=== PATIENT | female | born 1990 | race Caucasian/White ===

== ENCOUNTER 2019-05-11 07:30 | Inpatient (IN) | payer MEDICAID ==
[2019-05-11] VITALS (47 sets, daily range): BP systolic 92–138; BP diastolic 50–80
[~2019-05-11] VITALS: Ht 172.7 cm; Wt 93.2 kg
--- NOTE | 2019-05-11 07:00 | NUR ---
GISSEL DOOLEY admitted to room 3320-1, with an admitting diagnosis of induction of labor, on 05/11/19 from home via ambulation, accompanied by s/o.GISSEL DOOLEY introduced to surroundings, call light, bed controls, phone, TV, temperature control, lights, meal times, smoking policy, visitor policy, side rail policy, bathrooms and showers. Patient Rights given to patient in the handbook. GISSEL DOOLEY verbalizes understanding that [facility] is not responsible for the loss or damage to any personal effects or valuables that are kept in the patients posession during their hospitalization. The following Patient Care Plans were discussed with the patient: Discharge Planning, pain management, labor POC, and epidural protocol. GISSEL DOOLEY verbalizes understanding of Interdisciplinary Patient Education. Patient and/or family were informed about the Rapid Response Team and its purpose.
[~2019-05-11 07:30] MED LIST: D5 LR IV SOLUTION 1,000 ML IV ONE; LACTATED RINGERS 1,000 ML IV ONE
[2019-05-11 08:19] LABS: BASOPHILS % (AUTO) 0 % (0-10); EOSINOPHILS # (AUTO) 0.4 10^3/uL (0.0-0.3); EOSINOPHILS % (AUTO) 3 % (0-10); HEMATOCRIT 37 % (35-52); HEMOGLOBIN 12.4 G/DL (11.5-16.0); LYMPHOCYTES # (AUTO) 2.5 X 10^3 (1.0-4.0); LYMPHOCYTES % (AUTO) 15 % (12-44); MEAN CORPUSCULAR HEMOGLOBIN 32 PG (25-34); MEAN CORPUSCULAR HGB CONC 34 G/DL (32-36); MEAN CORPUSCULAR VOLUME 93 FL (80-99); MEAN PLATELET VOLUME 12.7 FL (7.4-10.4); MONOCYTES # (AUTO) 1.2 X 10^3 (0.0-1.0); MONOCYTES % (AUTO) 7 % (0-12); NEUTROPHILS # (AUTO) 12.2 X 10^3 (1.8-7.8); NEUTROPHILS % (AUTO) 75 % (42-75); PLATELET COUNT 181 10^3/uL (130-400); RED CELL DISTRIBUTION WIDTH 13.3 % (10.0-14.5); WHITE BLOOD COUNT 16.3 10^3/uL (4.3-11.0)
[2019-05-11 08:47] LABS: BAND NEUTROPHILS 0 %; BASOPHILS % (MANUAL) 0 %; EOSINOPHILS % (MANUAL) 6 %; LYMPHOCYTES % (MANUAL) 18 %; MONOCYTES % (MANUAL) 10 %; NEUTROPHILS % (MANUAL) 66 %; RBC MORPH NORMAL
[2019-05-11] MEDS: OXYTOCIN/NORMAL SALINE 500 ML IV SCH ×2 (09:15→17:55)
[2019-05-11] MEDS ORDERED: D5 LR IV SOLUTION 1,000 ML IV SCH (11:44)
[2019-05-11] MEDS ORDERED: OXYTOCIN/NORMAL SALINE 500 ML IV SCH ×2 (11:44→19:35)
[2019-05-11] MEDS ORDERED: DOCU-143 PO (11:49)
[2019-05-11] MEDS ORDERED: OXYC1TAB87 PO (11:49)
[2019-05-11] MEDS ORDERED: IBUP-1780 PO (11:49)
--- NOTE | 2019-05-11 11:50 | Discharge Instructions ---
Discharge Instructions Discharge Medications New, Converted or Re-Newed RX: RX on Chart Patient Instructions Patient Instructions: Per routine Return to The Hospital For: Per routine Activity & Diet Discharge Diet: No Restrictions Activity as Tolerated: No Orders-Post D/C & Referrals Follow Up Appt: Call to make follow up appt. for patient in 4 weeks. Activity Per routine post vaginal delivery instructions. Please call in RX to patient pharmacy. Diet as tolerated Patient may shower or tub bathe as desired. GISSELL YATES MD May 11, 2019 11:50
[2019-05-11] MEDS ORDERED: SUFENTA 0.6MCG/ML BUPIVA 0.125 100 ML ONE (11:56)
[2019-05-11] MEDS ORDERED: LACTATED RINGERS 1,000 ML IV SCH (12:42)
[2019-05-11] MEDS ORDERED: EPIDURAL (SUFENTA 0.6MCG/ML BUPIVA 0.125%) 100 ML BAG EPI SCH (12:45)
[2019-05-11] MEDS ORDERED: diphenhydrAMINE 50 MG/ML INJ (BENADRYL) IV PRN (12:45)
[2019-05-11] MEDS ORDERED: ONDANSETRON 4 MG/2 ML (SDV) Z0FRAN IV PRN (12:45)
[2019-05-11] MEDS ORDERED: METOCLOPRAMIDE INJ 10 MG/2 ML (REGLAN) IV PRN (12:45)
[2019-05-11] MEDS ORDERED: NALOXONE 0.4 MG/ML 1 ML (NARCAN) VIAL IV PRN ×2 (12:45)
--- NOTE | 2019-05-11 15:02 | NUR ---
dr tomas here. assessing contraction/fhr pattern. no new orders at this time.
[2019-05-11] MEDS ORDERED: BUPIVACAINE 0.5% 30 ML (SENSORCAINE) VIAL ONE (16:15)
[2019-05-11] MEDS ORDERED: fentaNYL INJECTION 100 MCG/2 ML AMP ONE (16:16)
--- NOTE | 2019-05-11 16:17 | NUR ---
anesthesia notified of increasing pain without relief from MECHANICS SUPERVISOR bolus.
--- NOTE | 2019-05-11 16:20 | NUR ---
anesthesia to room for poor pain control. lidia denny LIGHT BULB ASSEMBLER found epidural infusing on floor. informed this RN of error. anesthesia gave bolus through epidural, see record.
--- NOTE | 2019-05-11 17:11 | NUR ---
dr tomas notified of patient fhr tracing and variables with contractions. no new orders at this time.
--- NOTE | 2019-05-11 17:18 | NUR ---
sve by this RN. 7-8 cm 100% bloody show, denies pain or pressure. repositioned to right side. variable continues after contraction is finished. . 1719 increased IV fluids to 500cc/hr 1720 O2 on via nonrebreather @ 10 L, repostioned to left tilt with pillow under right buttocks. denies further need. continuing to monitor expectantly.
--- NOTE | 2019-05-11 18:15 | NUR ---
TO BEDSIDE. INFANT IN ARMS S/O AT BEDSIDE. FUNDAL MASSAGE. LIGHT TO MODERATE FLOW SMALL CLOT EXPRESSED WITH MASSAGE. /. DENIES NEED AT THIS TIME. REVIEWED DIET ORDER WITH PATIENT.
--- NOTE | 2019-05-11 18:30 | NUR ---
CONTINUING TO REST QUIETLY FFU/0 LIGHT TO MODERATE FLOW.
--- NOTE | 2019-05-11 18:50 | NUR ---
resting quietly in bed. infant in arms. denies need. moderate flow noted light flow with massage. no clots. ffu/0
--- NOTE | 2019-05-11 19:35 | NUR ---
report to thierry ramirez.
--- NOTE | 2019-05-11 19:35 | NUR ---
patient having difficulty ordering dinner. orders readjusted per dr wong. denies further need. a/ox3 and s/o at bedside.
--- NOTE | 2019-05-11 19:35 | NUR ---
Pt. sitting in bed eating dinner. Will attempt to get up to bathroom once meal is finished.
[2019-05-11] MEDS ORDERED: oxyCODONE/APAP 5/325MG (PERCOCET 5) TABLET PO PRN (19:45)
[2019-05-11] MEDS ORDERED: MEASLES,MUMPS,RUBELLA 1 EA INJ SC ONE (19:45)
[2019-05-11] MEDS ORDERED: BENZOCAINE/MENTHOL (DERMOPLAST) 56 ML CAN TP PRN (19:45)
[2019-05-11] MEDS ORDERED: TETANUS,DIPTH,PERTUSS P/F (BOOSTRIX) 0.5 ML VIAL IM ONE (19:45)
[2019-05-11] MEDS ORDERED: ONDANSETRON 4 MG/2 ML (SDV) Z0FRAN IVP PRN (19:45)
[2019-05-11] MEDS: KETOROLAC 30 MG/ML VIAL IVP PRN (20:13)
--- NOTE | 2019-05-11 20:50 | NUR ---
Pt. was able to ambulate to bathroom without difficulty. Positive void noted. Will transfer to PP room 309 soon.
--- NOTE | 2019-05-11 20:55 | NUR ---
Pt. transferred to PP room 309 via wheelchair, accompanied by staff, , and SO. Pt. oriented to room, call light, room service, and thermostat. toiletries, ice water, and packet provided and explained. No questions or concerns voiced at this time.
[2019-05-11] MEDS: DOCUSATE SODIUM 100 MG (COLACE) CAP PO SCH (21:47)
--- NOTE | 2019-05-12 00:56 | OPERATIVE REPORT ---
DATE OF SERVICE: 05/11/2019 DELIVERY NOTE The patient delivered by term spontaneous vaginal delivery a viable female infant with Apgars of 8 and 9 at 1 and 5 minutes respectively, weight of 6 pounds 15 ounces. time of 1751. The infant was delivered over an intact perineum under epidural analgesia. The infant was bulb suctioned on delivery of the head and again on completion of the delivery. Infant had a spontaneous cry, was quickly pink, moved all extremities and had excellent tone and reflexes. The umbilical cord was doubly clamped, father cut the cord, the baby was passed to mom's abdomen. Cord bloods were obtained. The placenta delivered spontaneously [place]. It was normal with a 3-vessel cord. The placenta was sent to pathology for permanent section due to the patient's history of polyhydramnios. The cervix, vagina, rectum, and perineum were examined and found intact. Estimated blood loss was around 150 mL. Sponge and needle counts were correct on completion of delivery and the post-delivery exam. The patient remained in the LDR for recovery. The baby remained with the mom. Job ID: [id number] DocumentID: [id number] Dictated Date: 05/11/2019 18:02:03 Bridge Painter Date: 05/12/2019 00:55:15 Dictated By: GISSELL YATES MD
[2019-05-12 01:15] VITALS: BP 98/55
[2019-05-12] MEDS: KETOROLAC 30 MG/ML VIAL IVP PRN (01:31)
[2019-05-12 05:14] VITALS: BP 90/59
--- NOTE | 2019-05-12 07:46 | Progress Note ---
Standard Progress Note Progress Notes/Assess & Plan Date Seen by a Provider: May 12, 2019 Time Seen by a Provider: 07:45 Progress/Assessment & Plan This patient is without complaint. She is ambulating, voiding, tolerating oral intake well has good pain control. Patient is requesting discharge home. Vital Signs 05/12/19 05:14 Temp 97.3 Pulse 67 Resp 16 B/P (MAP) 90/59 (69) Pulse Ox 97 O2 Delivery Room Air Vital signs are stable. Patient is afebrile. Fundus is firm below the umbilicus and nontender. Trice show no clubbing or cyanosis. There is no Homans sign. There is some pretibial pitting edema that is within normal limits. Assessment and plan day number 1 doing well. Plan is for discharge home with follow-up to clinic GISSELL YATES MD May 12, 2019 07:46
[2019-05-12 08:00] VITALS: BP 109/78
--- NOTE | 2019-05-12 08:00 | NUR ---
A.M. ASSESSMENT COMPLETED. VSS. WANTING TO GO HOME LATER TODAY.
[2019-05-12] MEDS ORDERED: TETANUS,DIPTH,PERTUSS P/F (BOOSTRIX) 0.5 ML VIAL IM ONE (08:53)
[2019-05-12] MEDS: DOCUSATE SODIUM 100 MG (COLACE) CAP PO SCH (09:09)
[2019-05-12] MEDS: IBUPROFEN 800 MG (MOTRIN) TAB PO SCH ×2 (09:10→15:03)
--- NOTE | 2019-05-12 10:00 | NUR ---
CONTINUES TO DO WELL. ATE STORK MEAL.
--- NOTE | 2019-05-12 10:04 | Anesthesia-Regional Post-Op ---
Regional Patient Condition Mental Status: Alert, Oriented x3 Circulation: Same as Pre-Op Headache: Absent Sensation: Full Recovery Motor Block: Absent Post Op Complications Complications None Follow Up Care/Instructions Patient Instructions None needed. Anesthesia/Patient Condition Patient is doing well, no complaints, stable vital signs, no apparent adverse anesthesia problems. No complications reported per nursing. D/C home per [facility] Criteria: Yes VERA ALEXANDER CRNA May 12, 2019 10:04
[2019-05-12 12:00] VITALS: BP 114/68
--- NOTE | 2019-05-12 12:00 | NUR ---
DR. MACK WAS IN AND NOT BEING DISMISSED TODAY.
--- NOTE | 2019-05-12 14:00 | NUR ---
PT WANTING TO GO TO ROOMING IN PARENT. RXS GIVEN FOR S.O. TO GO GET FILLED.
--- NOTE | 2019-05-12 15:00 | NUR ---
VISITORS AT THE BEDSIDE. CONTINUES TO CARE FOR INFANT. EATING BETTER.
[2019-05-12 17:00] VITALS: BP 106/60
--- NOTE | 2019-05-12 17:00 | NUR ---
S.O. FORGOT TO TAKE RXS ACCORDING TO PT. STILL WANTS TO GO TO ROOMING IN STATUS.
--- NOTE | 2019-05-12 18:20 | NUR ---
DISCHARGE INSTRUCTIONS REVIEWED WITH COPY TO PT. STATES UNDERSTANDING OF ALL INSTRUCTIONS AND NEED TO F/U SCHEDULED AND NEEDED.
[2019-05-12 18:30] VITALS: BP 106/60
--- NOTE | 2019-05-12 18:30 | NUR ---
DISMISSED FROM WS IN STABLE CONDITION. PT TO REMAIN IN THE ROOM A ROOMING-IN PARENT.
--- NOTE | 2019-05-15 11:01 | Physician Query-Final Dx ---
GOYO ROJAS 05/15/19 1101: Final Diagnosis Give Final Diagnosis Please give Final Diagnosis GISSELL YATES MD 05/15/19 1711: Final Diagnosis Give Final Diagnosis TSVD GOYO ROJAS May 15, 2019 11:01 GISSELL YATES MD May 15, 2019 17:11
--- NOTE | 2019-05-17 18:54 | HISTORY AND PHYSICAL ---
DATE OF SERVICE: ADMIT HISTORY AND PHYSICAL HISTORY OF PRSENT ILLNESS: This patient is a 28-year-old at the time of admission G3, P2 white female with an EDC of 05/28/2019 putting her on the day of admission at 37 and 4/7 weeks' gestation. She was admitted due to polyhydramnios with an OZ of 253 on the day prior to admission. She was admitted and started on Pitocin on 05/11/2019. She entered labor fairly and promptly and progressed again promptly and had a spontaneous vaginal delivery that was uncomplicated. The patient recovered uneventfully. At the time of admission, the patient's allergies were none. MEDICATIONS: vitamins. Medical social and surgical histories were per the antepartum record. PHYSICAL EXAMINATION: HEENT: Normal. NECK: Supple, no lymphadenopathy, no thyromegaly. ABDOMEN: Gravid, soft, nontender, nondistended. EXTREMITIES: No clubbing, cyanosis. There is no Homans sign. PELVIC: On the day prior to admission showed a cervix 2+ cm dilated, 50% effaced, -1 station with a bulging bag with vertex presentation. ASSESSMENT AND PLAN: A 37 and 4/7 weeks gestation in a 28-year-old G3, P2 with two previous vaginal deliveries. She was admitted with the intent for induction of labor with Pitocin, which was indicated and warranted by her polyhydramnios. GBS culture performed at 35 weeks gestation was negative. Job ID: [id number] DocumentID: [id number] Dictated Date: 05/17/2019 15:02:58 Counter Clerk [employer] Date: 05/17/2019 18:53:48 Dictated By: GISSELL YATES MD
== END 2019-05-12 18:30 | disposition home or self-care (01) | DRG 807 ==
LOC: LDRP 07:30
PROVIDERS: ADMIT Obstetrics & Gynecology; ATTEND Obstetrics & Gynecology
PROC: 10E0XZZ Delivery of Products of Conception, External Approach (ICD-10-PCS; principal; 2019-05-11)
PROC: 3E033VJ Introduction of Other Hormone into Peripheral Vein, Percutaneous Approach (ICD-10-PCS; 2019-05-11)
DX: O40.3XX0 Polyhydramnios, third trimester, not applicable or unspecified (principal); O99.334 Smoking (tobacco) complicating childbirth; F17.200 Nicotine dependence, unspecified, uncomplicated; O99.62 Diseases of the digestive system complicating childbirth; K21.9 Gastro-esophageal reflux disease without esophagitis; Z37.0 Single live birth; Z3A.37 37 weeks gestation of pregnancy; Z23 Encounter for immunization
CPT/HCPCS: 36415; 85007; 85027; 86850; 86900; 86901; 90715

== ENCOUNTER 2021-02-14 01:52 | Observation (INO) | payer MEDICAID ==
[~2021-02-14] VITALS: Ht 172.7 cm; Wt 98.7 kg
[~2021-02-14 01:52] MED LIST changes: -D5 LR IV SOLUTION 1,000 ML IV ONE; +DOCU-143 PO; +IBUP-1780 PO; -LACTATED RINGERS 1,000 ML IV ONE; +OXYC1TAB87 PO
[2021-02-14 02:08] VITALS: BP 122/77
[2021-02-14 02:10] VITALS: BP 122/77
[2021-02-14] MEDS ORDERED: PREN-142 PO (02:12)
[2021-02-14 02:22] LABS: BILIRUBIN,URINE NEGATIVE (NEGATIVE); CLARITY,URINE CLEAR; COLOR,URINE YELLOW; GLUCOSE, URINE (UA) NEGATIVE (NEGATIVE); KETONES,URINE NEGATIVE (NEGATIVE); LEUKOCYTE ESTERASE ,URINE NEGATIVE (NEGATIVE); NITRITE,URINE NEGATIVE (NEGATIVE); PH,URINE 6.5 (5-9); PROTEIN,URINE NEGATIVE (NEGATIVE)
[2021-02-14 02:32] LABS: AMORPHOUS SEDIMENT,UR MOD AMOR URATES /LPF; BACTERIA,URINE TRACE /HPF; RBC,URINE 0-2 /HPF; WBC,URINE 0-2 /HPF
[2021-02-14] MEDS ORDERED: D5 LR IV SOLUTION 1,000 ML IV ONE ×2 (02:33→02:45)
[2021-02-14] MEDS ORDERED: fentaNYL INJ 100 MCG/2 ML AMP ONE (02:45)
[2021-02-14] MEDS ORDERED: fentaNYL INJ 100 MCG/2 ML AMP IVP ONE (03:00)
[2021-02-14 03:14] LABS: BASOPHILS # (AUTO) 0.1 10^3/uL (0.0-0.1); BASOPHILS % (AUTO) 1 % (0-10); EOSINOPHILS # (AUTO) 0.3 10^3/uL (0.0-0.3); EOSINOPHILS % (AUTO) 1 % (0-10); HEMATOCRIT 35 % (35-52); HEMOGLOBIN 11.5 g/dL (11.5-16.0); LYMPHOCYTES # (AUTO) 2.5 10^3/uL (1.0-4.0); LYMPHOCYTES % (AUTO) 11 % (12-44); MEAN CORPUSCULAR HEMOGLOBIN 30 pg (25-34); MEAN CORPUSCULAR HGB CONC 33 g/dL (32-36); MEAN CORPUSCULAR VOLUME 90 fL (80-99); MEAN PLATELET VOLUME 11.6 fL (9.0-12.2); MONOCYTES # (AUTO) 1.6 10^3/uL (0.0-1.0); MONOCYTES % (AUTO) 7 % (0-12); NEUTROPHILS # (AUTO) 18.4 10^3/uL (1.8-7.8); NEUTROPHILS % (AUTO) 78 % (42-75); PLATELET COUNT 225 10^3/uL (130-400); WHITE BLOOD COUNT 23.6 10^3/uL (4.3-11.0)
[2021-02-14 03:45] LABS: BILIRUBIN,URINE NEGATIVE (NEGATIVE); CLARITY,URINE CLEAR; COLOR,URINE YELLOW; GLUCOSE, URINE (UA) NEGATIVE (NEGATIVE); KETONES,URINE TRACE (NEGATIVE); LEUKOCYTE ESTERASE ,URINE NEGATIVE (NEGATIVE); NITRITE,URINE NEGATIVE (NEGATIVE); PH,URINE 6.5 (5-9); PROTEIN,URINE NEGATIVE (NEGATIVE)
[2021-02-14 03:53] LABS: AMORPHOUS SEDIMENT,UR FEW AMOR URATES /LPF; BACTERIA,URINE TRACE /HPF; RBC,URINE RARE /HPF; WBC,URINE 0-2 /HPF
[2021-02-14] MEDS ORDERED: ceFAZolin 2 GM IV Premixed 50 ML ONE (04:00)
[2021-02-14 04:12] LABS: BAND NEUTROPHILS 1 %; EOSINOPHILS % (MANUAL) 2 %; LYMPHOCYTES % (MANUAL) 12 %; MONOCYTES % (MANUAL) 3 %; NEUTROPHILS % (MANUAL) 82 %; RBC MORPH NORMAL
[2021-02-14 04:20] VITALS: BP 125/70
[2021-02-14] MEDS: ceFAZolin 2 GM IV Premixed 50 ML IV SCH ×4 (04:24→22:00)
[2021-02-14] MEDS: fentaNYL INJ 100 MCG/2 ML AMP IVP PRN ×6 (05:09→14:36)
[2021-02-14] MEDS: D5 LR IV SOLUTION 1,000 ML IV SCH ×3 (05:44→16:37)
[2021-02-14 06:21] LABS: BASOPHILS # (AUTO) 0.1 10^3/uL (0.0-0.1); BASOPHILS % (AUTO) 0 % (0-10); EOSINOPHILS # (AUTO) 0.2 10^3/uL (0.0-0.3); EOSINOPHILS % (AUTO) 1 % (0-10); HEMATOCRIT 31 % (35-52); HEMOGLOBIN 10.3 g/dL (11.5-16.0); LYMPHOCYTES # (AUTO) 2.1 10^3/uL (1.0-4.0); LYMPHOCYTES % (AUTO) 11 % (12-44); MEAN CORPUSCULAR HEMOGLOBIN 30 pg (25-34); MEAN CORPUSCULAR HGB CONC 33 g/dL (32-36); MEAN CORPUSCULAR VOLUME 90 fL (80-99); MEAN PLATELET VOLUME 11.5 fL (9.0-12.2); MONOCYTES # (AUTO) 1.2 10^3/uL (0.0-1.0); MONOCYTES % (AUTO) 6 % (0-12); NEUTROPHILS # (AUTO) 15.9 10^3/uL (1.8-7.8); NEUTROPHILS % (AUTO) 80 % (42-75); PLATELET COUNT 197 10^3/uL (130-400); WHITE BLOOD COUNT 19.8 10^3/uL (4.3-11.0)
[2021-02-14 06:28] LABS: ALBUMIN 2.8 GM/DL (3.2-4.5)
[2021-02-14 06:29] LABS: CHLORIDE 105 MMOL/L (98-107); POTASSIUM 3.3 MMOL/L (3.6-5.0); SODIUM 138 MMOL/L (135-145)
[2021-02-14 06:30] LABS: CALCIUM 8.2 MG/DL (8.5-10.1)
[2021-02-14 06:31] LABS: GLUCOSE 133 MG/DL (70-105); TOTAL PROTEIN 5.4 GM/DL (6.4-8.2)
[2021-02-14 06:32] LABS: CARBON DIOXIDE 23 MMOL/L (21-32)
[2021-02-14 06:33] LABS: BILIRUBIN,TOTAL 0.2 MG/DL (0.1-1.0)
[2021-02-14 06:35] LABS: ALKALINE PHOSPHATASE 95 U/L (40-136); CREATININE SERUM 0.68 MG/DL (0.60-1.30); GFR ESTIMATED > 60
[2021-02-14 06:36] LABS: BUN/CREATININE RATIO 9
[2021-02-14 06:38] LABS: ALANINE AMINOTRANSFERASE 13 U/L (0-55)
[2021-02-14 08:25] VITALS: BP 117/67
[2021-02-14] MEDS: ONDANSETRON 4 MG/2 ML (SDV) Z0FRAN IVP PRN ×2 (08:46→14:35)
[2021-02-14] MEDS ORDERED: DICYCLOMINE 10 MG (BENTYL) CAP PO NR (09:30)
[2021-02-14 10:08] LABS: AMYLASE 61 U/L (25-125)
[2021-02-14 10:16] LABS: LIPASE 37 U/L (8-78)
[2021-02-14] MEDS: METOCLOPRAMIDE INJ 10 MG/2 ML (REGLAN) IVP SCH ×3 (11:12→22:00)
--- NOTE | 2021-02-14 12:27 | History & Physical ---
History and Physical Date Seen by Provider: February 14, 2021 Time Seen by Provider: 12:22 This patient is a 30-year-old white female currently at about 32 weeks gestation who was admitted last evening with complaint of right side back and flank pain. She also complained of nausea. She denied rupture membranes or bleeding. She d oes feel baby moving. She was uncertain whether or not she was having contractions. Patient's lab work is as follows Laboratory Tests Test 02/14/21 01:25 02/14/21 02:05 02/14/21 02:50 02/14/21 03:05 Range/Units Urine Color YELLOW YELLOW Urine Clarity CLEAR CLEAR Urine pH 6.5 6.5 5-9 Urine Specific [place] 1.025 H 1.025 H 1.016-1.022 Urine Protein NEGATIVE NEGATIVE NEGATIVE Urine Glucose (UA) NEGATIVE NEGATIVE NEGATIVE Urine Ketones NEGATIVE TRACE H NEGATIVE Urine Nitrite NEGATIVE NEGATIVE NEGATIVE Urine Bilirubin NEGATIVE NEGATIVE NEGATIVE Urine Urobilinogen 0.2 0.2 < = 1.0 MG/DL Urine Leukocyte Esterase NEGATIVE NEGATIVE NEGATIVE Urine RBC (Auto) NEGATIVE NEGATIVE NEGATIVE Urine RBC 0-2 RARE /HPF Urine WBC 0-2 0-2 /HPF Urine Squamous Epithelial Cells 5-10 2-5 /HPF Urine Crystals PRESENT H PRESENT H /LPF Urine Amorphous Sediment MOD LONNIE URATES H FEW LONNIE URATES H /LPF Urine Bacteria TRACE TRACE /HPF Urine Casts NONE NONE /LPF Urine Mucus SMALL H SMALL H /LPF Urine Culture Indicated CULTURE PENDING CULTURE PENDING White Blood Count 23.6 H 4.3-11.0 10^3/uL Red Blood Count 3.87 3.80-5.11 10^6/uL Hemoglobin 11.5 11.5-16.0 g/dL Hematocrit 35 35-52 % Mean Corpuscular Volume 90 80-99 fL Mean Corpuscular Hemoglobin 30 25-34 pg Mean Corpuscular Hemoglobin Concent 33 32-36 g/dL Red Cell Distribution Width 14.4 10.0-14.5 % Platelet Count 225 130-400 10^3/uL Mean Platelet Volume 11.6 9.0-12.2 fL Immature Granulocyte % (Auto) 3 % Neutrophils (%) (Auto) 78 H 42-75 % Lymphocytes (%) (Auto) 11 L 12-44 % Monocytes (%) (Auto) 7 0-12 % Eosinophils (%) (Auto) 1 0-10 % Basophils (%) (Auto) 1 0-10 % Neutrophils # (Auto) 18.4 H 1.8-7.8 10^3/uL Lymphocytes # (Auto) 2.5 1.0-4.0 10^3/uL Monocytes # (Auto) 1.6 H 0.0-1.0 10^3/uL Eosinophils # (Auto) 0.3 0.0-0.3 10^3/uL Basophils # (Auto) 0.1 0.0-0.1 10^3/uL Immature Granulocyte # (Auto) 0.6 H 0.0-0.1 10^3/uL Neutrophils % (Manual) 82 % Lymphocytes % (Manual) 12 % Monocytes % (Manual) 3 % Eosinophils % (Manual) 2 % Band Neutrophils 1 % Blood Morphology Comment NORMAL Test 02/14/21 06:10 Range/Units White Blood Count 19.8 H 4.3-11.0 10^3/uL Red Blood Count 3.47 L 3.80-5.11 10^6/uL Hemoglobin 10.3 L 11.5-16.0 g/dL Hematocrit 31 L 35-52 % Mean Corpuscular Volume 90 80-99 fL Mean Corpuscular Hemoglobin 30 25-34 pg Mean Corpuscular Hemoglobin Concent 33 32-36 g/dL Red Cell Distribution Width 14.3 10.0-14.5 % Platelet Count 197 130-400 10^3/uL Mean Platelet Volume 11.5 9.0-12.2 fL Immature Granulocyte % (Auto) 2 % Neutrophils (%) (Auto) 80 H 42-75 % Lymphocytes (%) (Auto) 11 L 12-44 % Monocytes (%) (Auto) 6 0-12 % Eosinophils (%) (Auto) 1 0-10 % Basophils (%) (Auto) 0 0-10 % Neutrophils # (Auto) 15.9 H 1.8-7.8 10^3/uL Lymphocytes # (Auto) 2.1 1.0-4.0 10^3/uL Monocytes # (Auto) 1.2 H 0.0-1.0 10^3/uL Eosinophils # (Auto) 0.2 0.0-0.3 10^3/uL Basophils # (Auto) 0.1 0.0-0.1 10^3/uL Immature Granulocyte # (Auto) 0.5 H 0.0-0.1 10^3/uL Sodium Level 138 135-145 MMOL/L Potassium Level 3.3 L 3.6-5.0 MMOL/L Chloride Level 105 98-107 MMOL/L Carbon Dioxide Level 23 21-32 MMOL/L Anion Gap 10 5-14 MMOL/L Blood Urea Nitrogen 6 L 7-18 MG/DL Creatinine 0.68 0.60-1.30 MG/DL Estimat Glomerular Filtration Rate > 60 BUN/Creatinine Ratio 9 Glucose Level 133 H 70-105 MG/DL Calcium Level 8.2 L 8.5-10.1 MG/DL Corrected Calcium 9.2 8.5-10.1 MG/DL Total Bilirubin 0.2 0.1-1.0 MG/DL Aspartate Amino Transf (AST/SGOT) 14 5-34 U/L Alanine Aminotransferase (ALT/SGPT) 13 0-55 U/L Alkaline Phosphatase 95 40-136 U/L Total Protein 5.4 L 6.4-8.2 GM/DL Albumin 2.8 L 3.2-4.5 GM/DL Amylase Level 61 25-125 U/L Lipase 37 8-78 U/L Vital Signs Date Time Temp Pulse Resp B/P (MAP) Pulse Ox O2 Delivery O2 Flow Rate FiO2 02/14/21 08:25 37.0 75 18 117/67 (84) 95 Room Air 02/14/21 04:20 36.3 75 18 125/70 (88) Room Air 02/14/21 02:10 36.3 83 18 98 Room Air 02/14/21 02:08 36.3 83 18 122/77 (92) 98 Room Air 02/14/21 02:08 36.3 83 18 98 Room Air I & O 02/14/21 07:00 Intake Total 1050 ml Balance 1050 ml Patient is afebrile HEENT exam is normal Neck is supple no lymphadenopathy no thyromegaly Abdomen is gravid soft nontender nondistended Extremities show no clubbing or cyanosis. There is no Homans' sign. Pelvic exam is deferred Assessment and plan This patient is at 32 weeks gestation she presented with signs symptoms indications I think most consistent with a viral gastroenteritis. She has some indications of a possible ileus however that seems to be resolving as well. Her white blood cell count was elevated however she is afebrile and her white count has decreased some since presentation. She has had episodes of nausea with emesis but that is improving now with hydration and observation as well. Electrolytes and liver enzymes are normal Patient is reporting that she feels better and would like to eat. We will allow diet and continue observation. As it appears her complaints are resolving when she feels significantly and adequately improved we will allow discharge home with follow-up in clinic Patient reports that she has had a cholecystectomy in the past Ultrasound of the kidneys bladder ureters and abdomen and liver preliminary report is normal with no overtly concerning findings 32 weeks with viral gastroenteritis/ileus Allergies and Home Medications Allergies Coded Allergies: No Known Drug Allergies (Unverified , 05/11/19) Home Medications Vit No.124/Iron/FA 1 Each Tablet, 1 EACH PO DAILY, (Reported) Last Action: New Order Patient Home Medication List Home Medication List Reviewed: Yes GISSELL YATES MD February 14, 2021 12:27
--- NOTE | 2021-02-14 12:28 | Discharge Inst-Surgical ---
Discharge Inst-Surgical Consults/Follow Up Patient Instructions: As directed Orders & Referrals Patient should return to clinic for OB follow-up next week with me. She can call the office on Tuesday for an appointment Activity Activity as Tolerated: Yes Diet Discharge Diet: No Restrictions GISSELL YATES MD February 14, 2021 12:28
[2021-02-14] MEDS ORDERED: ACET-2267 PO ×2 (12:37)
--- NOTE | 2021-02-14 13:25 | Diagnostic Imaging Report ---
INDICATION: Right-sided abdominal pain PROCEDURE: Ultrasound abdomen complete. TECHNIQUE: Multiple real-time grayscale images were obtained of the abdomen in various projections. Comparison: None FINDINGS: The small portion of the pancreatic head is visible and appears normal. Much of the pancreas is obscured by bowel gas. Imaged portions of the aorta and IVC appear normal. The liver is normal in echogenicity. No focal hepatic lesions are seen. There is no biliary dilatation. The gallbladder is absent. The main portal vein is hepatopetal. The common bile duct is not identified, but no enlarged duct is seen. Sonographic Sanchez sign is negative. The right kidney measures 11.3 cm in length. There is no hydronephrosis. The left kidney measures 12 cm in length, with no hydronephrosis. No masses or shadowing stones are seen bilaterally. The spleen is 10.1 cm in length. No splenic lesions are seen. No free fluid is seen. IMPRESSION: 1. No sonographic abnormalities seen in the abdomen. Dictated by: Dictated on workstation # [id number]
[2021-02-14] MEDS ORDERED: oxyCODONE/APAP 5/325MG (PERCOCET 5) TABLET ONE (16:19)
[2021-02-14] MEDS ORDERED: oxyCODONE/APAP 5/325MG (PERCOCET 5) TABLET PO PRN (16:30)
[2021-02-14 17:07] LABS: AMPHETAMINE SCREEN, URINE NEGATIVE (NEGATIVE); BARBITURATE SCREEN URINE NEGATIVE (NEGATIVE); BENZODIAZEPINES SCREEN URINE NEGATIVE (NEGATIVE); CANNABINOID SCREEN, URINE POSITIVE (NEGATIVE); COCAINE SCREEN URINE NEGATIVE (NEGATIVE); METHADONE STAT NEGATIVE (NEGATIVE); METHAMPHETAMINE SCREEN URINE S NEGATIVE (NEGATIVE); OPIATE SCREEN URINE NEGATIVE (NEGATIVE); OXYCODONE STAT NEGATIVE (NEGATIVE); PROPOXYPHENE STAT NEGATIVE (NEGATIVE); TRICYCLIC ANTIDEPRESSANTS SCRE NEGATIVE (NEGATIVE)
[2021-02-14 17:15] VITALS: BP 123/64
[2021-02-14] MEDS ORDERED: BUTORPHANOL INJ 2 MG/ML (STADOL) VIAL ONE ×2 (17:32→19:29)
[2021-02-14] MEDS ORDERED: BUTORPHANOL INJ 2 MG/ML (STADOL) VIAL IV ONE ×3 (17:45→22:15)
--- NOTE | 2021-02-14 17:51 | Progress Note ---
Standard Progress Note Progress Notes/Assess & Plan Date Seen by a Provider: February 14, 2021 Time Seen by a Provider: 17:48 Progress/Assessment & Plan I was called to see patient due to persistent and increasing right back pain. Patient had been seen earlier today and her symptoms have been improving from admission. At this point her status has declined to where the pain is as bad or worse than it was when she was admitted. She complains only of right back pain. She does have nausea. She denies dysuria or dyschezia. She has no history of diarrhea or constipation. She does not have contraction. She has no abdominal pain. The abdomen is gravid soft nontender nondistended. There is no guarding rebound or rigidity. Bowel sounds are hypoactive throughout. There is no CVA tenderness. There is no psoas sign. There is no obturator sign. There is no Rovsing sign. Assessment and plan persistent relatively severe right back pain of unsure etiology. Patient has had some associated nausea and vomiting. She has had bilious emesis. We will resume n.p.o. and continue supportive care with IV fluids. We will try Stadol for pain relief. Plan will be to repeat lab work in the morning. We will evaluate the patient again in the morning for any further work-up or evaluation warranted or indicated GISSELL YATES MD February 14, 2021 17:51
[2021-02-14 19:45] VITALS: BP 130/75
[2021-02-15 00:20] VITALS: BP 132/85
[2021-02-15] MEDS ORDERED: BUTORPHANOL INJ 2 MG/ML (STADOL) VIAL ONE ×2 (00:25→02:35)
[2021-02-15] MEDS ORDERED: BUTORPHANOL INJ 2 MG/ML (STADOL) VIAL IV ONE (00:30)
[2021-02-15 02:45] VITALS: BP 130/82
[2021-02-15] MEDS: BUTORPHANOL INJ 2 MG/ML (STADOL) VIAL IV PRN ×4 (02:48→09:27)
[2021-02-15] MEDS: D5 LR IV SOLUTION 1,000 ML IV SCH ×2 (02:48→08:00)
[2021-02-15] MEDS: ceFAZolin 2 GM IV Premixed 50 ML IV SCH ×2 (04:45→10:40)
[2021-02-15] MEDS: METOCLOPRAMIDE INJ 10 MG/2 ML (REGLAN) IVP SCH ×2 (04:45→10:40)
[2021-02-15 05:13] LABS: BASOPHILS # (AUTO) 0.1 10^3/uL (0.0-0.1); BASOPHILS % (AUTO) 0 % (0-10); EOSINOPHILS # (AUTO) 0.1 10^3/uL (0.0-0.3); EOSINOPHILS % (AUTO) 0 % (0-10); HEMATOCRIT 32 % (35-52); HEMOGLOBIN 10.3 g/dL (11.5-16.0); LYMPHOCYTES # (AUTO) 1.9 10^3/uL (1.0-4.0); LYMPHOCYTES % (AUTO) 10 % (12-44); MEAN CORPUSCULAR HEMOGLOBIN 29 pg (25-34); MEAN CORPUSCULAR HGB CONC 32 g/dL (32-36); MEAN CORPUSCULAR VOLUME 90 fL (80-99); MEAN PLATELET VOLUME 11.1 fL (9.0-12.2); MONOCYTES # (AUTO) 1.2 10^3/uL (0.0-1.0); MONOCYTES % (AUTO) 6 % (0-12); NEUTROPHILS # (AUTO) 15.9 10^3/uL (1.8-7.8); NEUTROPHILS % (AUTO) 82 % (42-75); PLATELET COUNT 200 10^3/uL (130-400); WHITE BLOOD COUNT 19.5 10^3/uL (4.3-11.0)
[2021-02-15 05:23] LABS: ALANINE AMINOTRANSFERASE 9 U/L (0-55); ALBUMIN 2.8 GM/DL (3.2-4.5); ALKALINE PHOSPHATASE 98 U/L (40-136); BILIRUBIN,TOTAL 0.2 MG/DL (0.1-1.0); BUN/CREATININE RATIO 8; CALCIUM 7.9 MG/DL (8.5-10.1); CARBON DIOXIDE 21 MMOL/L (21-32); CHLORIDE 106 MMOL/L (98-107); CREATININE SERUM 0.66 MG/DL (0.60-1.30); GFR ESTIMATED > 60; GLUCOSE 136 MG/DL (70-105); POTASSIUM 3.5 MMOL/L (3.6-5.0); SODIUM 136 MMOL/L (135-145); TOTAL PROTEIN 5.6 GM/DL (6.4-8.2)
[2021-02-15 07:25] VITALS: BP 123/74
--- NOTE | 2021-02-15 09:17 | Diagnostic Imaging Report ---
PROCEDURE: CT abdomen and pelvis without contrast. TECHNIQUE: Multiple contiguous axial images were obtained through the abdomen and pelvis without the use of intravenous contrast. Auto Exposure Controls were utilized during the CT exam to meet ALARA standards for radiation dose reduction. INDICATION: Patient is 32 weeks . Examination was approved by Dr. Daniel Josue. Risks versus benefits of the procedure were explained to the patient and informed consent was acquired. INDICATION: Abdominal pain. Concern for appendicitis. COMPARISON: Abdominal ultrasound 02/14/2021. FINDINGS: Patchy nonspecific airspace consolidation in the lung bases likely due to atelectasis. Cholecystectomy. The liver, pancreas, spleen, adrenals, left kidney, ureters and bladder are negative on this noncontrast exam. Nonobstructing 0.4 cm renal stone in the lower pole of the right kidney. Normal appendix. Late term intrauterine gestation in the vertex presentation. No large subchorionic hemorrhage is identified. No free intraperitoneal air or fluid. No lymphadenopathy. No evidence of bowel obstruction. No acute osseous findings. IMPRESSION: 1. No acute CT findings in the abdomen or pelvis on this non-contrast exam. The appendix is normal. 2. Nonobstructing calyceal tip 0.4 cm renal stone on the right. No hydronephrosis. Dictated by: Dictated on workstation # [id number]
--- NOTE | 2021-02-15 10:44 | Progress Note ---
Standard Progress Note Progress Notes/Assess & Plan Date Seen by a Provider: February 15, 2021 Time Seen by a Provider: 10:39 Progress/Assessment & Plan I was called to see patient due to persistent and increasing right back pain. Patient had been seen earlier today and her symptoms have been improving from admission. At this point her status has declined to where the pain is as bad or worse than it was when she was admitted. She complains only of right back pain. She does have nausea. She denies dysuria or dyschezia. She has no history of diarrhea or constipation. She does not have contraction. She has no abdominal pain. The abdomen is gravid soft nontender nondistended. There is no guarding rebound or rigidity. Bowel sounds are hypoactive throughout. There is no CVA tenderness. There is no psoas sign. There is no obturator sign. There is no Rovsing sign. Assessment and plan persistent relatively severe right back pain of unsure etiology. Patient has had some associated nausea and vomiting. She has had bilious emesis. We will resume n.p.o. and continue supportive care with IV fluids. We will try Stadol for pain relief. Plan will be to repeat lab work in the morning. We will evaluate the patient again in the morning for any further work-up or evaluation warranted or indicated February 15, 2021 Patient reports that her pain currently is controlled she has been receiving Stadol about every 2 hours. She denies nausea or vomiting. She is not specifically hungry but she is thirsty and would like to drink. We discussed the repeat lab work showing a persistently elevated white blood cell count but everything appeared stable otherwise and the lab work. Laboratory Tests Test 02/15/21 04:53 Range/Units White Blood Count 19.5 H 4.3-11.0 10^3/uL Red Blood Count 3.59 L 3.80-5.11 10^6/uL Hemoglobin 10.3 L 11.5-16.0 g/dL Hematocrit 32 L 35-52 % Mean Corpuscular Volume 90 80-99 fL Mean Corpuscular Hemoglobin 29 25-34 pg Mean Corpuscular Hemoglobin Concent 32 32-36 g/dL Red Cell Distribution Width 14.2 10.0-14.5 % Platelet Count 200 130-400 10^3/uL Mean Platelet Volume 11.1 9.0-12.2 fL Immature Granulocyte % (Auto) 2 % Neutrophils (%) (Auto) 82 H 42-75 % Lymphocytes (%) (Auto) 10 L 12-44 % Monocytes (%) (Auto) 6 0-12 % Eosinophils (%) (Auto) 0 0-10 % Basophils (%) (Auto) 0 0-10 % Neutrophils # (Auto) 15.9 H 1.8-7.8 10^3/uL Lymphocytes # (Auto) 1.9 1.0-4.0 10^3/uL Monocytes # (Auto) 1.2 H 0.0-1.0 10^3/uL Eosinophils # (Auto) 0.1 0.0-0.3 10^3/uL Basophils # (Auto) 0.1 0.0-0.1 10^3/uL Immature Granulocyte # (Auto) 0.3 H 0.0-0.1 10^3/uL Sodium Level 136 135-145 MMOL/L Potassium Level 3.5 L 3.6-5.0 MMOL/L Chloride Level 106 98-107 MMOL/L Carbon Dioxide Level 21 21-32 MMOL/L Anion Gap 9 5-14 MMOL/L Blood Urea Nitrogen 5 L 7-18 MG/DL Creatinine 0.66 0.60-1.30 MG/DL Estimat Glomerular Filtration Rate > 60 BUN/Creatinine Ratio 8 Glucose Level 136 H 70-105 MG/DL Calcium Level 7.9 L 8.5-10.1 MG/DL Corrected Calcium 8.9 8.5-10.1 MG/DL Total Bilirubin 0.2 0.1-1.0 MG/DL Aspartate Amino Transf (AST/SGOT) 10 5-34 U/L Alanine Aminotransferase (ALT/SGPT) 9 0-55 U/L Alkaline Phosphatase 98 40-136 U/L Total Protein 5.6 L 6.4-8.2 GM/DL Albumin 2.8 L 3.2-4.5 GM/DL CT of the abdomen pelvis was obtained and was normal except for a nonobstructing stone in the right kidney. Vital signs are stable. Patient is afebrile. Vital Signs Date Time Temp Pulse Resp B/P (MAP) Pulse Ox O2 Delivery O2 Flow Rate FiO2 02/15/21 07:25 36.8 74 18 123/74 (90) 95 Room Air 02/15/21 02:45 36.6 67 18 130/82 (98) 100 Room Air 02/15/21 00:20 36.3 84 18 132/85 (101) 100 Room Air 02/14/21 19:45 36.3 65 18 130/75 (93) 100 Room Air 02/14/21 17:15 35.9 84 18 123/64 (83) 100 Room Air I & O 02/15/21 07:00 Intake Total 3150 ml Balance 3150 ml The abdomen is soft nontender nondistended. Abdomen is gravid Extremities show no clubbing cyanosis. There is no Homans' sign. Assessment and plan is now hospital day 3 with severe right back and side pain. Etiology for the pain has not been illuminated. White blood cell count stays elevated. We have continued empiric Ancef and urine culture is still pending. Work-up including ultrasound and CT have been negative. Most suspicious of a gastroenteritis however mass-effect of the large uterus could be responsible for some but not most of her pain is well. We will hold the IV fluids and discontinue IV narcotic. We will try Lorcet as the patient has had good response with that in the past and we will allow diet as tolerated. If symptoms recur may necessitate returning to n.p.o. status and maintaining with IV fluid however if symptoms stay under control we can consider discharge home with follow-up in clinic Final Diagnosis Gastroenteritis at 32 weeks gestation GISSELL YATES MD February 15, 2021 10:44
[2021-02-15] MEDS ORDERED: HYDR-3820 PO (10:47)
--- NOTE | 2021-02-15 10:49 | Discharge Inst-Surgical ---
Discharge Inst-Surgical Depart Medication/Instructions New, Converted or Re-Newed RX: RX on Chart Consults/Follow Up Patient Instructions: as directed Orders & Referrals Return to clinic as scheduled for OB follow-up Activity Activity as Tolerated: Yes Diet Discharge Diet: No Restrictions GISSELL YATES MD February 15, 2021 10:49
== END 2021-02-15 13:42 | disposition home or self-care (01) ==
LOC: WSo 01:52 → LDRP 01:53 → WSo 06:47 → LDRP 06:48
PROVIDERS: ADMIT Obstetrics & Gynecology; ATTEND Obstetrics & Gynecology
DX: O99.613 Diseases of the digestive system complicating pregnancy, third trimester (principal); K52.9 Noninfective gastroenteritis and colitis, unspecified; Z3A.32 32 weeks gestation of pregnancy
CPT/HCPCS: 36415; 74176; 76700; 80053; 80306; 81000; 82150; 83690; 85007; 85025; 85027; 87088; 87210; 87491; 87591; 96361; 96374; 96375; 96376; 99211; G0378

== ENCOUNTER 2021-02-16 03:47 | Outpatient (CLI) | payer MEDICAID ==
[~2021-02-16] VITALS: Ht 172.7 cm; Wt 98.7 kg
[~2021-02-16 03:47] MED LIST changes: +ACET-2267 PO; +HYDR-3820 PO; +PREN-142 PO
[2021-02-16 04:00] VITALS: BP 138/83
[2021-02-16 04:05] LABS: BILIRUBIN,URINE NEGATIVE (NEGATIVE); CLARITY,URINE CLEAR; COLOR,URINE YELLOW; GLUCOSE, URINE (UA) NEGATIVE (NEGATIVE); KETONES,URINE 3+ (NEGATIVE); LEUKOCYTE ESTERASE ,URINE NEGATIVE (NEGATIVE); NITRITE,URINE NEGATIVE (NEGATIVE); PROTEIN,URINE TRACE (NEGATIVE)
[2021-02-16 04:12] LABS: BACTERIA,URINE NEGATIVE /HPF
[2021-02-16 05:05] VITALS: BP 135/88
--- NOTE | 2021-02-16 08:28 | Physician Query-Final Dx ---
BILL PEOPLES 02/16/21 0828: Clinic Account Progress/Dx Physician Query: Please give diagnosis (P) Please include # weeks gestation Date of Service February 16, 2021 at 03:47 GISSELL YATES MD 02/16/21 1017: Clinic Account Progress/Dx DIAGNOSIS: Diagnosis False labor at 32 weeks gestation BILL PEOPLES February 16, 2021 08:28 GISSELL YATES MD February 16, 2021 10:17
== END 2021-02-16 05:20 | disposition home or self-care (01) ==
LOC: WSo 03:47 → LDRP 03:47 → WSo 05:20
PROVIDERS: ATTEND Obstetrics & Gynecology
DX: O47.03 False labor before 37 completed weeks of gestation, third trimester (principal); Z3A.32 32 weeks gestation of pregnancy
CPT/HCPCS: 81000; 99214

== ENCOUNTER 2021-03-27 11:30 | Inpatient (IN) | payer MEDICAID ==
[2021-03-27] VITALS (11 sets, daily range): BP systolic 117–140; BP diastolic 70–87
[2021-03-27] MEDS ORDERED: BENZOCAINE/MENTHOL (DERMOPLAST) 56 ML CAN TP PRN (12:15)
[2021-03-27] MEDS ORDERED: MEASLES,MUMPS,RUBELLA 1 EA INJ SQ ONE (12:15)
[2021-03-27] MEDS ORDERED: TETANUS,DIPTH,PERTUSS P/F (BOOSTRIX) 0.5 ML VIAL IM ONE (12:15)
[2021-03-27 12:33] LABS: BASOPHILS # (AUTO) 0.1 10^3/uL (0.0-0.1); BASOPHILS % (AUTO) 0 % (0-10); EOSINOPHILS # (AUTO) 0.3 10^3/uL (0.0-0.3); EOSINOPHILS % (AUTO) 2 % (0-10); HEMATOCRIT 37 % (35-52); HEMOGLOBIN 11.5 g/dL (11.5-16.0); LYMPHOCYTES # (AUTO) 1.7 10^3/uL (1.0-4.0); LYMPHOCYTES % (AUTO) 10 % (12-44); MEAN CORPUSCULAR HEMOGLOBIN 27 pg (25-34); MEAN CORPUSCULAR HGB CONC 31 g/dL (32-36); MEAN CORPUSCULAR VOLUME 89 fL (80-99); MEAN PLATELET VOLUME 11.9 fL (9.0-12.2); MONOCYTES # (AUTO) 1.1 10^3/uL (0.0-1.0); MONOCYTES % (AUTO) 7 % (0-12); NEUTROPHILS # (AUTO) 13.9 10^3/uL (1.8-7.8); NEUTROPHILS % (AUTO) 81 % (42-75); PLATELET COUNT 197 10^3/uL (130-400); WHITE BLOOD COUNT 17.1 10^3/uL (4.3-11.0)
[2021-03-27 12:55] LABS: AMPHETAMINE SCREEN, URINE POSITIVE (NEGATIVE); BARBITURATE SCREEN URINE NEGATIVE (NEGATIVE); BENZODIAZEPINES SCREEN URINE NEGATIVE (NEGATIVE); CANNABINOID SCREEN, URINE POSITIVE (NEGATIVE); COCAINE SCREEN URINE NEGATIVE (NEGATIVE); METHADONE STAT NEGATIVE (NEGATIVE); METHAMPHETAMINE SCREEN URINE S POSITIVE (NEGATIVE); OPIATE SCREEN URINE NEGATIVE (NEGATIVE); OXYCODONE STAT NEGATIVE (NEGATIVE); PROPOXYPHENE STAT NEGATIVE (NEGATIVE); TRICYCLIC ANTIDEPRESSANTS SCRE NEGATIVE (NEGATIVE)
[2021-03-27] MEDS ORDERED: CATHETER FLUSH 10 ML SYR IV SCH (14:00)
[2021-03-27] MEDS ORDERED: IBUPROFEN 800 MG (MOTRIN) TAB PO SCH (14:00)
[2021-03-27] MEDS ORDERED: IBUPROFEN 800 MG (MOTRIN) TAB PO ONE (20:11)
[2021-03-27] MEDS: DOCUSATE SODIUM 100 MG (COLACE) CAP PO SCH (20:13)
[2021-03-27] MEDS: IBUPROFEN 800 MG (MOTRIN) TAB PO SCH (20:13)
[2021-03-28 00:15] VITALS: BP 115/64
[2021-03-28] MEDS: IBUPROFEN 800 MG (MOTRIN) TAB PO SCH ×3 (01:53→14:20)
[2021-03-28 04:25] VITALS: BP 118/62
[2021-03-28] MEDS: DOCUSATE SODIUM 100 MG (COLACE) CAP PO SCH (08:46)
[2021-03-28 08:49] VITALS: BP 121/80
--- NOTE | 2021-03-28 10:18 | Progress Note ---
Standard Progress Note Progress Notes/Assess & Plan Date Seen by a Provider: Mar 28, 2021 Time Seen by a Provider: 10:16 Progress/Assessment & Plan This patient is without complaint. She is ambulating, voiding, tolerating oral intake well and has good pain control. Vital Signs 03/28/21 04:25 Temp 36.0 Pulse 61 Resp 18 B/P (MAP) 118/62 (80) Pulse Ox 98 O2 Delivery Room Air Vital signs are stable. Patient is afebrile. Laboratory Tests Test 03/27/21 11:40 03/27/21 12:23 Range/Units Urine Opiates Screen NEGATIVE NEGATIVE Urine Oxycodone Screen NEGATIVE NEGATIVE Urine Methadone Screen NEGATIVE NEGATIVE Urine Propoxyphene Screen NEGATIVE NEGATIVE Urine Barbiturates Screen NEGATIVE NEGATIVE Ur Tricyclic Antidepressants Screen NEGATIVE NEGATIVE Urine Phencyclidine Screen NEGATIVE NEGATIVE Urine Amphetamines Screen POSITIVE H NEGATIVE Urine Methamphetamines Screen POSITIVE H NEGATIVE Urine Benzodiazepines Screen NEGATIVE NEGATIVE Urine Cocaine Screen NEGATIVE NEGATIVE Urine Cannabinoids Screen POSITIVE H NEGATIVE White Blood Count 17.1 H 4.3-11.0 10^3/uL Red Blood Count 4.19 3.80-5.11 10^6/uL Hemoglobin 11.5 11.5-16.0 g/dL Hematocrit 37 35-52 % Mean Corpuscular Volume 89 80-99 fL Mean Corpuscular Hemoglobin 27 25-34 pg Mean Corpuscular Hemoglobin Concent 31 L 32-36 g/dL Red Cell Distribution Width 15.2 H 10.0-14.5 % Platelet Count 197 130-400 10^3/uL Mean Platelet Volume 11.9 9.0-12.2 fL Immature Granulocyte % (Auto) 1 % Neutrophils (%) (Auto) 81 H 42-75 % Lymphocytes (%) (Auto) 10 L 12-44 % Monocytes (%) (Auto) 7 0-12 % Eosinophils (%) (Auto) 2 0-10 % Basophils (%) (Auto) 0 0-10 % Neutrophils # (Auto) 13.9 H 1.8-7.8 10^3/uL Lymphocytes # (Auto) 1.7 1.0-4.0 10^3/uL Monocytes # (Auto) 1.1 H 0.0-1.0 10^3/uL Eosinophils # (Auto) 0.3 0.0-0.3 10^3/uL Basophils # (Auto) 0.1 0.0-0.1 10^3/uL Immature Granulocyte # (Auto) 0.1 0.0-0.1 10^3/uL Fundus is firm below the umbilicus and nontender. Extremities show no clubbing cyanosis. There is no Homans' sign. Assessment and plan day #1 status post term spontaneous vaginal delivery outside the hospital in route. Patient and baby appear to be doing well. Plan is for routine convalescent care Final Diagnosis 37-week spontaneous vaginal delivery in route to the hospital GISSELL YATES MD Mar 28, 2021 10:18
--- NOTE | 2021-03-28 10:23 | History & Physical ---
History and Physical Date Seen by Provider: Mar 27, 2021 Time Seen by Provider: 13:30 This patient is a 30-year-old grand multipara who delivered her baby in route to the hospital in her car. Apparently the placenta delivered spontaneously as well. Patient then called emergency services and was brought to the hospital via ambulance. On presentation patient was relatively immediately having normal lochia. There was no vaginal or perineal lacerations. The was taken care of by pediatrics. The placenta had delivered in route as well and that was now sent to pathology for permanent section. Patient was admitted for management. This patient had had one care at about 28 weeks of gestation. She had not kept any of her other appointments for care. Allergies are none Medications are vitamins Medical social and surgical history is all per the antepartum record It is of note that this patient has a drug use and abuse history HEENT exam was normal with poor dentition Neck was supple Abdomen was with fundus near the umbilicus and firm Extremities show no clubbing or cyanosis. There is no Homans' sign. Pelvic exam was deferred Laboratory Tests Test 03/27/21 11:40 03/27/21 12:23 Range/Units Urine Opiates Screen NEGATIVE NEGATIVE Urine Oxycodone Screen NEGATIVE NEGATIVE Urine Methadone Screen NEGATIVE NEGATIVE Urine Propoxyphene Screen NEGATIVE NEGATIVE Urine Barbiturates Screen NEGATIVE NEGATIVE Ur Tricyclic Antidepressants Screen NEGATIVE NEGATIVE Urine Phencyclidine Screen NEGATIVE NEGATIVE Urine Amphetamines Screen POSITIVE H NEGATIVE Urine Methamphetamines Screen POSITIVE H NEGATIVE Urine Benzodiazepines Screen NEGATIVE NEGATIVE Urine Cocaine Screen NEGATIVE NEGATIVE Urine Cannabinoids Screen POSITIVE H NEGATIVE White Blood Count 17.1 H 4.3-11.0 10^3/uL Red Blood Count 4.19 3.80-5.11 10^6/uL Hemoglobin 11.5 11.5-16.0 g/dL Hematocrit 37 35-52 % Mean Corpuscular Volume 89 80-99 fL Mean Corpuscular Hemoglobin 27 25-34 pg Mean Corpuscular Hemoglobin Concent 31 L 32-36 g/dL Red Cell Distribution Width 15.2 H 10.0-14.5 % Platelet Count 197 130-400 10^3/uL Mean Platelet Volume 11.9 9.0-12.2 fL Immature Granulocyte % (Auto) 1 % Neutrophils (%) (Auto) 81 H 42-75 % Lymphocytes (%) (Auto) 10 L 12-44 % Monocytes (%) (Auto) 7 0-12 % Eosinophils (%) (Auto) 2 0-10 % Basophils (%) (Auto) 0 0-10 % Neutrophils # (Auto) 13.9 H 1.8-7.8 10^3/uL Lymphocytes # (Auto) 1.7 1.0-4.0 10^3/uL Monocytes # (Auto) 1.1 H 0.0-1.0 10^3/uL Eosinophils # (Auto) 0.3 0.0-0.3 10^3/uL Basophils # (Auto) 0.1 0.0-0.1 10^3/uL Immature Granulocyte # (Auto) 0.1 0.0-0.1 10^3/uL Assessment and plan patient is medially with precipitous delivery in route to the hospital. There appears to be no adverse sequelae to her delivery outside the hospital. It is noted that urine drug screen was positive on admission for amphetamines and methamphetamines and cannabinoids. Plan now is for routine care 37-week spontaneous vaginal delivery outside the hospital Allergies and Home Medications Allergies Coded Allergies: No Known Drug Allergies (Unverified , 05/11/19) Home Medications Acetaminophen 500 Mg Tablet, 1,000 MG PO Q8H, (Reported) Hydrocodone/Acetaminophen 1 Each Tablet, 1 EACH PO Q4H Prescribed by: GISSELL SÁNCHEZ on 02/15/21 1047 Vit No.124/Iron/FA 1 Each Tablet, 1 EACH PO DAILY, (Reported) Patient Home Medication List Home Medication List Reviewed: Yes GISSELL YATES MD Mar 28, 2021 10:23
[2021-03-28] MEDS ORDERED: IBUP-1780 PO (10:26)
[2021-03-28 14:17] VITALS: BP 112/68
== END 2021-03-28 18:30 | disposition home or self-care (01) | DRG 776 ==
LOC: LDRP 11:30
PROVIDERS: ADMIT Obstetrics & Gynecology; ATTEND Obstetrics & Gynecology
DX: O99.325 Drug use complicating the puerperium (principal); F15.10 Other stimulant abuse, uncomplicated; F12.10 Cannabis abuse, uncomplicated
CPT/HCPCS: 36415; 80306; 85025; 90715